=== PATIENT | female | born 1950 | race Caucasian/White ===

== ENCOUNTER 2016-03-08 00:02 | Emergency (ER) | payer OTHER ==
[~2016-03-08] VITALS: Ht 160 cm; Wt 81.6 kg
[~2016-03-08 00:02] MED LIST: NEURONTIN300 M1 PO
--- NOTE | 2016-03-08 00:40 | ED NECK/BACK PAIN COMPLAINT ---
History of Present Illness General Chief Complaint: General Adult Stated Complaint: "BACK/ TORSAL PAIN FOR [id number]" Source: patient, family Exam Limitations: no limitations Vital Signs & Intake/Output Vital Signs & Intake/Output Vital Signs Date Time Temp Pulse Resp B/P Pulse O2 O2 Flow FiO2 Ox Delivery Rate 03/08 0316 96.0 65 17 122/66 97 Room Air 03/08 0031 97.7 67 18 150/78 96 Room Air Allergies Coded Allergies: codeine (RAPID HEART RATE 10/07/15) Reconcile Medications Gabapentin (Neurontin) 300 MG CAPSULE 1 CAP PO QHS neuropathy Lisinopril 5 MG TABLET 1 TAB PO DAILY HTN (Reported) Omeprazole Magnesium (Prilosec Otc) 20 MG TABLET. 1 TAB PO DAILY GERD ( Reported) Triage Note: PT STS SHE HAS BEEN EXPERIENCING PAIN TO HER BACK THAT STARTS LIKE A MUSCLE CRAMP TO HER MID UPPER BACK RADIATING ACROSS CHEST AND THEN FEELS CHEST TIGHTNING. PT STS DURING EPISODE HER HEART PALPITATE AND 'BEATS FASTER". PT STS SHE GETS FLUSHED AND WARM BUT NO N/V ASSOCIATED WITH THE EPISODE. PT STS SHE ALSO GETS A LOT OF BELCHING WITH EPISODE AND IT LAST ABOUT 20 MIN. PT STS EPISODE USUALLY OCCURRS ONCE EVERY 2-4 DAYS FOR PAST 7 WKS BUT TODAY HAPPENED ABOUT 3 TIMES AND IT WAS CONCERNING TO HER. Triage Nurses Notes Reviewed? yes Onset: Gradual Duration: week(s):, waxing and waning Timing: recent history Quality/Severity: moderate Radiation: to chest Context: "There seems to be no reason when it comes on... it is not related to exercise... I can do a 10 mile hike without a problem" Method of Injury: unknown Loss of Consciousness: no loss of consciousness Modifying Factors: rest Associated Symptoms: muscle spasm HPI: 65 yo woman in prior good health presents with intermittent back pain for several weeks characterized by a feeling of a "tightening" or a "spasm" on her back, which, on occasion, radiates bilaterally around the front of her chest. She is presently pain free. She had three episodes during the day yesterday. "And I thought I should get it checked out." She notes a negative stress test 6-8 Past History Travel History Traveled to [place] past 21 day No Medical History Any Pertinent Medical History? see below for history Cardiovascular: hypertension Respiratory: hiatal hernia Gastrointestinal: GERD Surgical History Surgical History: non-contributory Psychosocial History What is your primary language Luxembourgish Tobacco Use: Never used ETOH Use: denies use Illicit Drug Use: denies illicit drug use Family History Hx Contributory? No Review of Systems Review of Systems Constitutional: Reports: no symptoms. Eyes: Reports: no symptoms. Ears, Nose, Throat, Mouth: Reports: no symptoms. Respiratory: Reports: no symptoms. Cardiovascular: Reports: no symptoms. Gastrointestinal/Abdominal: Reports: no symptoms. Musculoskeletal: Reports: no symptoms. Skin: Reports: no symptoms. Neurological/Psychological: Reports: no symptoms. All Other Systems: Reviewed and Negative Physical Exam Physical Exam General Appearance: well developed/nourished, mild distress Head: atraumatic Eyes: Bilateral: PERRL, EOMI. Ears, Nose, Throat, Mouth: hearing grossly normal Neck: normal inspection, supple, full range of motion, normal alignment Respiratory: normal breath sounds, right lower rib cage tenderness to palpation Cardiovascular: regular rate/rhythm Gastrointestinal: normal bowel sounds, soft, non-tender Back: normal inspection, muscle spasm, no vertebral tenderness Extremities: normal range of motion Neurologic/Psych: awake, alert, oriented x 3, normal mood/affect Skin: intact, normal color, warm/dry Comments: light touch and strength intact. Progress Differential Diagnosis: pe vs myalgia vs muscle spasm vs mi vs chest wall pain vs other. Plan of Care: Orders Procedure Date/time Status URINALYSIS 03/08 011 Complete TROPONIN LEVEL 03/08 39 Complete PARTIAL THROMBOPLASTIN TIME 03/08 39 Complete PROTHROMBIN TIME 03/08 39 Complete MAGNESIUM 03/08 39 Complete D-DIMER 03/08 39 Complete COMPREHENSIVE METABOLIC PANEL 03/08 39 Complete CBC WITHOUT DIFFERENTIAL 03/08 39 Complete EKG 03/08 0036 Active Laboratory Tests 03/08/16 0203: Urine Color YEL, Urine Clarity CLEAR, Urine pH 6.5, Ur Specific [place] 1.010, Urine Protein NEG, Urine Ketones NEG, Urine Nitrite NEG, Urine Bilirubin NEG, Urine Urobilinogen 0.2, Ur Leukocyte Esterase NEG, Ur Microscopic EXAM NOT REQUIRED, Urine Hemoglobin NEG, Urine Glucose NEG 03/08/16 0042: Anion Gap 15, Estimated GFR > 60, BUN/Creatinine Ratio 18.9, Glucose 104 H, Calcium 10.0, Magnesium 2.0, Total Bilirubin 0.4, AST 32, ALT 47, Alkaline Phosphatase 90, Troponin I < 0.01, Total Protein 7.3, Albumin 4.5, Globulin 2.8, Albumin/Globulin Ratio 1.6, PT 9.8, INR 0.93, APTT 26, D-Dimer < 200, CBC w Diff NO MAN DIFF REQ, RBC 5.06, MCV 85.7, MCH 28.3, RDW 13.4, MPV 8.3, Gran % 52.6, Lymphocytes % 32.0, Monocytes % 9.1, Eosinophils % 5.8 H, Basophils % 0.5, Absolute Granulocytes 3.9, Absolute Lymphocytes 2.4, Absolute Monocytes 0.7 H, Absolute Eosinophils 0.4, Absolute Basophils 0, PUBS MCHC 33.0 Diagnostic Imaging: Viewed by Me: Radiology Read. Discussed w/RAD: Radiology Read. CXR Impression: hypoinflation, c/w hiatal hernia Comments: PATIENT: CHIQUIS COY PRESENT AGE: 65 PATIENT ACCOUNT NO: [id number] : 50 LOCATION: [facility] ORDERING PHYSICIAN: EMMANUEL PHAN MD SERVICE DATE: 03/08/16 EXAM TYPE: RAD - XRY-PORTABLE CHEST XRAY EXAMINATION: XR PORTABLE CHEST CLINICAL INFORMATION: Chest pain COMPARISON: None. TECHNIQUE: Portable view of the chest was obtained. FINDINGS: Low lung volumes. A retrocardiac opacity is noted medially. No pleural effusion or pneumothorax. No edema. The cardiomediastinal silhouette is unremarkable for this technique. No acute osseous abnormality. IMPRESSION: Low lung volumes with medial retrocardiac opacity. This appearance is nonspecific. A hiatal hernia could have this appearance. Alternatively, cannot exclude atelectasis or pneumonia. A lateral radiograph could be useful for better differentiation. DICTATED BY: LAMINE NAVA MD DATE/TIME DICTATED:03/08/16149 NETWORK SECURITY OFFICER:GUCCI DATE/TIME TRANSCRIBED:03/08/16149 CONFIDENTIAL, DO NOT COPY WITHOUT APPROPRIATE AUTHORIZATION. <Electronically signed in Other Vendor System> SIGNED BY: LAMINE NAVA MD 03/084 Departure Departure Disposition: HOME OR SELF CARE Condition: Stable Clinical Impression Primary Impression: Back pain Secondary Impressions: Chest wall pain, Myalgia Referrals: ANATOLIY FLOOD,JENNIFER Hernández (PCP/Family) Departure Forms: Customer Survey General Discharge Information Comments 03/08/16. 3:21am.... pt feeling well throughout ED stay. labs benign... after much discussion, pt would like to go home and follow up with her pmd.
[2016-03-08] MEDS ORDERED: LISINOPRIL5 M1 PO (00:42)
[2016-03-08] MEDS ORDERED: PRILOSEC OTC20 M1 PO (00:43)
[2016-03-08 01:17] LABS: ABSOLUTE BASOPHIL COUNT 0 /CUMM (0.0-0.2); ABSOLUTE EOSINOPHIL COUNT 0.4 /CUMM (0.0-0.7); ABSOLUTE GRANULOCYTE CT 3.9 /CUMM (1.4-6.5); ABSOLUTE LYMPH COUNT 2.4 /CUMM (1.2-3.4); ABSOLUTE MONOCYTE COUNT 0.7 /CUMM (0.10-0.60); BASOPHIL % 0.5 % (0.0-2.0); EOSINOPHIL % 5.8 % (0-5); GRANULOCYTE % 52.6 % (42.2-75.2); HEMATOCRIT 43.4 % (37-47); MEAN CORPUSCULAR HGB 28.3 PG (27.0-31.0); MEAN CORPUSCULAR VOLUME 85.7 FL (81.0-99.0); MEAN PLATELET VOLUME 8.3 FL (7.4-10.4); PLATELET COUNT 270 /CUMM (130-400); RBC DISTRIBUTION WIDTH 13.4 % (11.5-14.5); RED BLOOD CELL CT 5.06 /CUMM (4.20-5.40); WHITE BLOOD CELL COUNT 7.4 /CUMM (4.8-10.8)
[2016-03-08 01:42] LABS: PT 9.8 SEC (9.4-12.5); PTT 26 SEC (25-37)
--- NOTE | 2016-03-08 01:54 | RADIOLOGY REPORT ---
EXAMINATION: XR PORTABLE CHEST CLINICAL INFORMATION: Chest pain COMPARISON: None. TECHNIQUE: Portable view of the chest was obtained. FINDINGS: Low lung volumes. A retrocardiac opacity is noted medially. No pleural effusion or pneumothorax. No edema. The cardiomediastinal silhouette is unremarkable for this technique. No acute osseous abnormality. IMPRESSION: Low lung volumes with medial retrocardiac opacity. This appearance is nonspecific. A hiatal hernia could have this appearance. Alternatively, cannot exclude atelectasis or pneumonia. A lateral radiograph could be useful for better differentiation.
[2016-03-08 03:16] VITALS: BP 122/66
== END 2016-03-08 03:17 ==
LOC: ERH 00:02
PROVIDERS: Pediatrics
DX: R07.89 Other chest pain (principal); M54.9 Dorsalgia, unspecified; M79.1 Myalgia
CPT/HCPCS: 81003; 93005; 93010